=== PATIENT | female | born 1965 | race Caucasian/White ===

== ENCOUNTER 2017-03-02 10:42 | Emergency (ER) | payer OTHER ==
[~2017-03-02] VITALS: Ht 165.1 cm; Wt 100.0 kg
[~2017-03-02 10:42] MED LIST: LORTA5 PO; POLY10O LEFT EYE; Z.0.NO CURRENT MEDS
[2017-03-02 10:44] VITALS: BP 150/71; PULSE 90; RESP 15; TEMP 98.2; O2SAT 99
[2017-03-02] MEDS ORDERED: SODIUM CHLOR 0.9% 1000 ML INJ 1,000 ML IV SCH (11:53)
[2017-03-02] MEDS ORDERED: MORPHINE SULFATE 4 MG/ML INJ IV PUSH ONE (12:00)
[2017-03-02] MEDS ORDERED: ONDANSETRON HCL 4 MG/2 ML VIAL IVP ONE (12:00)
[2017-03-02] MEDS ORDERED: SODIUM CHLORIDE 0.9% FLUSH 10 ML FLUSH IV FLUSH PRN (12:00)
--- NOTE | 2017-03-02 12:02 | PD ---
HPI Chief Complaint: Back/ Neck Pain or Injury Time Seen by Provider: 11:56 Travel History International Travel<30 days: No Contact w/Intl Traveler<30days: No Traveled to known affect area: No History of Present Illness HPI 52-year-old female presents to the emergency department for evaluation of left low back pain. Patient states that on Tuesday, she felt a pull in her left lower back. She assumed that she had a muscle strain. She went to urgent care and received a Toradol injection. She has received prescriptions for diclofenac and Flexeril. She states she is taking his without improvement. Patient reports history diverticulitis and irritable bowel syndrome. She states that she started vomiting today. The pain worsens in her back and now radiates to her abdomen with vomiting. Patient denies any fevers or chills. She states that her stool is green. She states she has been unable to eat. Patient denies . She denies chest pain or shortness of breath. Patient denies any loss of bowel or bladder control. No saddle anesthesias. Patient denies any weakness. Back pain is worse with movement. 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 She states that she saw her vascular surgeon last month and states that everything was fine with this. She denies any other abdominal surgeries. [facility] Social History Alcohol Use: Yes (occasionally) Tobacco Use: No Substance Use: No Allergies-Medications (Allergen,Severity, Reaction): Coded Allergies: Penicillin (Verified Allergy, Severe, Anaphylaxis, 03/02/17) Codeine (Verified Allergy, Intermediate, VOMITING/SWELLING, 03/02/17) Reported Meds & Prescriptions Reported Meds & Active Scripts Active Reported Dicyclomine (Dicyclomine HCl) 20 Mg Tab 20 Mg PO TID Review of Systems Except as stated in HPI: all other systems reviewed are Neg Physical Exam Narrative GENERAL: Well-nourished, well-developed female patient, ambulatory. Afebrile. SKIN: Focused skin assessment warm/dry. HEAD: Normocephalic. Atraumatic. EYES: No scleral icterus. No injection or drainage. NECK: Supple, trachea midline. No JVD or lymphadenopathy. CARDIOVASCULAR: Regular rate and rhythm without murmurs, gallops, or rubs. RESPIRATORY: Breath sounds equal bilaterally. No accessory muscle use. Lungs sounds are clear to auscultation. GASTROINTESTINAL: Abdomen soft and nondistended. Patient has tenderness over the epigastric region, left upper quadrant, left lower quadrant. MUSCULOSKELETAL: No cyanosis, or edema. Bilateral upper and lower extremity strength 5/5. All extremities are neurovascularly intact. BACK: No obvious deformity. No CVA tenderness. No midline spinal tenderness. Patient has tenderness over left lumbar paraspinal musculature. She is ambulatory, but with pain. Data Data Last Documented VS Vital Signs Date Time Temp Pulse Resp B/P Pulse Ox O2 Delivery O2 Flow Rate FiO2 03/02/17 14:04 18 03/02/17 13:30 70 147/82 98 Room Air 03/02/17 10:44 98.2 Orders Morphine Inj (Morphine Inj) (03/02/17 12:00) Complete Blood Count With Diff (03/02/17 11:53) Comprehensive Metabolic Panel (03/02/17 11:53) Lipase (03/02/17 11:53) Urinalysis - C+S If Indicated (03/02/17 11:53) Ct Abd/Pel W Iv Contrast(Rout) (03/02/17 11:53) Iv Access Insert/Monitor (03/02/17 11:53) Ecg Monitoring (03/02/17 11:53) Oximetry (03/02/17 11:53) Ondansetron Inj (Zofran Inj) (03/02/17 12:00) Sodium Chlor 0.9% 1000 Ml Inj (Ns 1000 M (03/02/17 11:53) Sodium Chloride 0.9% Flush (Ns Flush) (03/02/17 12:00) Electrocardiogram (03/02/17 11:53) Ed Urine Pregnancytest Poc (03/02/17 11:53) Ct Lumb Spine W/O Contrast (03/02/17 ) Urine Culture (03/02/17 12:00) Iohexol 350 Inj (Omnipaque 350 Inj) (03/02/17 14:14) Ketorolac Inj (Toradol Inj) (03/02/17 15:00) Labs Laboratory Tests Test 03/02/17 03/02/17 12:00 12:50 White Blood Count 12.7 TH/MM3 Red Blood Count 4.15 MIL/MM3 Hemoglobin 12.3 GM/DL Hematocrit 37.1 % Mean Corpuscular Volume 89.2 FL Mean Corpuscular Hemoglobin 29.6 PG Mean Corpuscular Hemoglobin 33.2 % Concent Red Cell Distribution Width 13.6 % Platelet Count 319 TH/MM3 Mean Platelet Volume 8.7 FL Neutrophils (%) (Auto) 72.1 % Lymphocytes (%) (Auto) 16.3 % Monocytes (%) (Auto) 7.9 % Eosinophils (%) (Auto) 2.7 % Basophils (%) (Auto) 1.0 % Neutrophils # (Auto) 9.2 TH/MM3 Lymphocytes # (Auto) 2.1 TH/MM3 Monocytes # (Auto) 1.0 TH/MM3 Eosinophils # (Auto) 0.3 TH/MM3 Basophils # (Auto) 0.1 TH/MM3 CBC Comment AUTO DIFF Differential Comment AUTO DIFF CONFIRMED Urine Color YELLOW Urine Turbidity HAZY Urine pH 5.5 Urine Specific Tas[place] 1.011 Urine Protein NEG mg/dL Urine Glucose (UA) NEG mg/dL Urine Ketones NEG mg/dL Urine Occult Blood NEG Urine Nitrite NEG Urine Bilirubin NEG Urine Urobilinogen LESS THAN 2.0 MG/DL Urine Leukocyte Esterase NEG Urine WBC 1 /hpf Urine Squamous Epithelial 9 /hpf Cells Urine Bacteria MANY /hpf Urine Mucus FEW /lpf Microscopic Urinalysis Comment CULTURE INDICATED Sodium Level 138 MEQ/L Potassium Level 4.0 MEQ/L Chloride Level 106 MEQ/L Carbon Dioxide Level 25.2 MEQ/L Anion Gap 7 MEQ/L Blood Urea Nitrogen 16 MG/DL Creatinine 0.91 MG/DL Estimat Glomerular Filtration 65 ML/MIN Rate Random Glucose 88 MG/DL Calcium Level 8.9 MG/DL Total Bilirubin 0.4 MG/DL Aspartate Amino Transf 15 U/L (AST/SGOT) Alanine Aminotransferase 18 U/L (ALT/SGPT) Alkaline Phosphatase 64 U/L Total Protein 7.0 GM/DL Albumin 3.4 GM/DL Lipase 133 U/L [facility] Medical Decision Making Medical Screen Exam Complete: Yes Emergency Medical Condition: Yes Medical Record Reviewed: Yes Interpretation(s) CT abdomen/pelvis - CONCLUSION: 1. No acute abnormality is seen. 2. Mild hepatic steatosis. 3. Tiny 2 mm nonobstructing left renal stone. CT lumbar spine -CONCLUSION: 1. Mild disc bulges at the L3-L4 and L4-L5 levels. 2. Lower lumbar facet hypertrophy at the L5-S1 level. 3. Several sclerotic areas in the upper sacrum. These are nonspecific. Bone islands can have this appearance but other causes for sclerotic lesions cannot be excluded. Differential Diagnosis Diverticulitis versus pancreatitis versus bowel obstruction versus muscle strain versus muscle spasm versus herniated disc Narrative Course 52-year-old female presents to the emergency department for evaluation of low back pain, left abdominal pain, vomiting. EKG, CBC, CMP, lipase, UA and UPT are ordered and pending. CT abdomen/pelvis with IV contrast and CT of the lumbar spine without contrast are ordered and pending. Patient is given morphine 4 mg IV, Zofran 4 mg IV, normal saline 1 L IV bolus. EKG shows SR, HR 72, no acute ST changes. CBC shows leukocytosis 12.7. CMP shows no acute abnormal. Lipase is 133. UA shows many bacteria. UPT is negative. CT of the lumbar spine shows mild disc bulges at the L3-L4 and L4-L5 levels; lower lumbar facet hypertrophy at the L5-S1 level; several sclerotic areas in the upper sacrum. These are nonspecific. Bone islands can have this appearance but other causes for sclerotic lesions cannot be excluded. CT of the abdomen/pelvis shows no acute abnormality is seen; mild hepatic steatosis; Tiny 2 mm nonobstructing left renal stone. Patient will be discharged with a short term prescription for Lortab for pain. She will be discharged with a prescription for Macrobid for UTI. I discussed the case with my attending physician, Dr. Smith, who agrees on plan and disposition. The patient was discharged in stable condition with instructions, including return instructions and follow up instructions. Diagnosis Primary Impression: Lumbar strain Qualified Code: S39.012A - Lumbar strain, initial encounter Additional Impression: Abdominal pain Qualified Code: R10.9 - Abdominal pain, unspecified location Referrals: Primary Care Physician call for appointment Patient Instructions: Abdominal Pain (ED), Acute Low Back Pain (ED), General Instructions Departure Forms: Tests/Procedures, Work Release Enter return to work date: Mar 05, 2017 Additional Instructions: Continue diclofenac as needed for mild-moderate pain. Take Lortab as directed as needed for moderate-severe pain. Caution this can make you drowsy so do not drive after taking. Continue Flexeril as needed. Take Zofran as directed as needed for nausea. Take Macrobid as directed until gone for UTI. Follow-up with your primary care physician. Return to the emergency department for any acute worsening of symptoms. Med/Other Pt SpecificInfo: Prescription(s) given Scripts Nitrofurantoin Monohydrate Macrocrystals (Macrobid)100 Mg Xof640 Mg PO BID 7 Days Ref 0 Prov:Aleah Pete 03/02/17 Ondansetron Odt 4 Mg Tab4 Mg SL Q6HR PRN (Nausea/Vomiting) #16 TAB Ref 0 Prov:Aleah Pete 03/02/17 Hydrocodone-Acetaminophen (Lortab)5-325 Mg Tab1 Tab PO Q6H PRN (PAIN) #16 TAB Ref 0 Prov:Niels Smith MD 03/02/17 Disposition: 01 DISCHARGE HOME Condition: Stable Aleah Pete Mar 02, 2017 12:01
[2017-03-02 12:14] VITALS: O2SAT 97
[2017-03-02 12:26] LABS: AUTOMATED NEUTROPHIL # 9.2 TH/MM3 (1.8-7.7); BASOPHIL # 0.1 TH/MM3 (0-0.2); EOSINOPHIL # 0.3 TH/MM3 (0-0.4); EOSINOPHIL % 2.7 % (0.0-4.0); HEMATOCRIT 37.1 % (35.0-46.0); LYMPH % 16.3 % (9.0-44.0); LYMPHOCYTE # 2.1 TH/MM3 (1.0-4.8); MEAN CELL VOLUME 89.2 FL (80.0-100.0); MEAN CORPUSCULAR HEMOGLOBIN 29.6 PG (27.0-34.0); MEAN CORPUSCULAR HGB CONC 33.2 % (32.0-36.0); MONO % 7.9 % (0.0-8.0); NEUT % 72.1 % (16.0-70.0); PLATELET COUNT 319 TH/MM3 (150-450); RED BLOOD COUNT 4.15 MIL/MM3 (4.00-5.30); RED CELL DISTRIBUTION WIDTH 13.6 % (11.6-17.2); WHITE BLOOD COUNT 12.7 TH/MM3 (4.0-11.0)
[2017-03-02 12:27] LABS: HEMO FLAGS AUTO DIFF
[2017-03-02] MEDS ORDERED: DICY20TA10 PO (12:29)
[2017-03-02 12:32] LABS: BACTERIA, URINE MANY /hpf; BLOOD, URINE NEG (NEG); COMMENT (UR) CULTURE INDICATED; CULTURE IF INDICATED CULTURE INDICATED; GLUCOSE,URINE NEG (NEG); KETONE, URINE NEG (NEG); MUCUS URINE FEW /lpf (OCC); NITRITE,URINE NEG (NEG); PH, URINE 5.5 (5.0-8.5); SQUAMOUS EPITHELIAL CELL URINE 9 /hpf (0-5); URINE COLOR YELLOW (YELLW/STRAW)
[2017-03-02 13:05] LABS: SCAN/DIFF AUTO DIFF CONFIRMED
[2017-03-02 13:23] LABS: ALT (GPT) 18 U/L (10-53); ANION GAP 7 MEQ/L (5-15); AST (GOT) 15 U/L (15-37); BICARBONATE 25.2 MEQ/L (21.0-32.0); BLOOD UREA NITROGEN 16 MG/DL (7-18); CHLORIDE 106 MEQ/L (98-107); GLOMERULAR FILTRATION RATE 65 ML/MIN (>89); SODIUM (NA) 138 MEQ/L (136-145)
[2017-03-02 13:25] LABS: ALKALINE PHOSPHATASE 64 U/L (45-117); TOTAL BILIRUBIN ADULT 0.4 MG/DL (0.2-1.0)
[2017-03-02 13:30] VITALS: BP 147/82; PULSE 70; RESP 19; O2SAT 98
[2017-03-02 14:04] VITALS: RESP 18
[2017-03-02] MEDS ORDERED: IOHEXOL 350 MG/ML 10 ML VIAL (for RAD DIAG) IV ONE (14:14)
--- NOTE | 2017-03-02 14:54 | RADRPT ---
EXAM DATE/TIME: 03/02/2017 14:19 [facility] COMPARISON: No previous studies available for comparison. INDICATIONS : Left back and abdominal pain. Vomiting IV CONTRAST: 92 cc Omnipaque 350 (iohexol) IV ORAL CONTRAST: No oral contrast ingested. RADIATION DOSE: 16.67 CTDIvol (mGy) MEDICAL HISTORY : Irritable bowel syndrome, Diverticulitis SURGICAL HISTORY : celiac artery surgery ENCOUNTER: Initial ACUITY: 4 - 6 days PAIN SCALE: 6/10 LOCATION: Left middle abdomen TECHNIQUE: Volumetric scanning of the abdomen and pelvis was performed. Using automated exposure control and adjustment of the mA and/or kV according to patient size, radiation dose was kept as low as reasonably achievable to obtain optimal diagnostic quality images. FINDINGS: There is mild decreased attenuation seen throughout the liver. No focal hepatic lesion s are seen. Clips are seen in the celiac region. Gallbladder is unremarkable for a CT examination. The spleen, pancreas, and adrenal glands are unremarkable. Both kidneys demonstrate normal enhancem ent. There is a small 2 mm nonobstructing left renal stone seen at the superior left collecting syst em. There is a circumaortic left renal vein. This is a normal variant. There are some scattered co lonic diverticula in the descending colon and sigmoid regions. Significant inflammatory change is not seen. The bowel appears otherwise unremarkable. What appears to possibly be the appendix is identi fied and appears normal. The pelvic structures are grossly intact. The lung bases are clear. There is some degenerative change in the lower lumbar spine. There is hypertrophic change seen around the r ight ischial tuberosity likely from prior hamstring injury. CONCLUSION: 1. No acute abnormality is seen. 2. Mild hepatic steatosis. 3. Tiny 2 mm nonobstructing left renal stone. Abner Villatoro MD on March 02, 2017 at 14:39 Board Certified Radiologist. This report was verified electronically.
[2017-03-02] MEDS ORDERED: KETOROLAC TROMETHAMINE 30 MG/ML (IVP) VIAL IV PUSH ONE (15:00)
--- NOTE | 2017-03-02 15:28 | RADRPT ---
EXAM DATE/TIME: 03/02/2017 14:19 [facility] COMPARISON: No previous studies available for comparison. INDICATIONS : Left back pain status post injury on Tuesday. RADIATION DOSE: CTDIvol (mGy) ; Reconstructed from previous dataset MEDICAL HISTORY : Irritable bowel syndrom, diverticulitis, SURGICAL HISTORY : celiac artery surgery ENCOUNTER: Initial ACUITY: 4 - 6 days PAIN SCALE: 6/10 LOCATION: Left lateral lumbar TECHNIQUE: Volumetric scanning of the lumbar spine was performed. Multiplanar reconstructions in the sagittal, coronal and oblique axial planes were performed. Using automated exposure control and adjustment of the mA and/or kV according to patient size, radiation dose was kept as low as reasonably achievable t o obtain optimal diagnostic quality images. FINDINGS: VERTEBRAE: Normal vertebral body height. There are several sclerotic foci seen in the upper sacrum. These are no nspecific. They may represent bone islands. At least 3 lesions are seen with the largest one measurin g 0.9 cm. ALIGNMENT: No evidence of subluxation. OTHER: Clips are seen in the celiac region. T12-L1: The thecal sac has a normal diameter. No evidence of disc bulge or protrusion. The neural foramina are patent bilaterally. L1-L2: The thecal sac has a normal diameter. No evidence of disc bulge or protrusion. The neural foramina are patent bilaterally. L2-L3: The thecal sac has a normal diameter. No evidence of disc bulge or protrusion. The neural foramina are patent bilaterally. L3-L4: There is mild diffuse disc bulge. This causes a mild impress on the thecal sac. No evidence of disc b ulge or protrusion. The neural foramina are patent bilaterally. L4-L5: There is mild diffuse disc bulge. This causes a mild impress on the thecal sac. No evidence of disc b ulge or protrusion. The neural foramina are patent bilaterally. L5-S1: The thecal sac has a normal diameter. No evidence of disc bulge or protrusion. The neural foramina are patent bilaterally. There is mild facet hypertrophy. CONCLUSION: 1. Mild disc bulges at the L3-L4 and L4-L5 levels. 2. Lower lumbar facet hypertrophy at the L5-S1 level. 3. Several sclerotic areas in the upper sacrum. These are nonspecific. Bone islands can have this nasima earance but other causes for sclerotic lesions cannot be excluded. Abner Villatoro MD on March 02, 2017 at 15:19 Board Certified Radiologist. This report was verified electronically.
[2017-03-02] MEDS ORDERED: HYDR-3533 PO (15:37)
[2017-03-02] MEDS ORDERED: ONDA4TAB7 SL (15:40)
[2017-03-02] MEDS ORDERED: MACR100C2 PO (15:40)
[2017-03-02 15:55] VITALS: BP 140/72
--- NOTE | 2017-03-03 13:44 | EKG ---
Date Performed: 03/02/2017 Time Performed: 12:27:26 PTAGE: 52 years EKG: Sinus rhythm NORMAL ECG INTERPRETATION BASED ON A DEFAULT AGE OF 42 YEARS NO PREVIOUS TRACING DOCTOR: Farrah Drake Interpretating Date/Time 03/03/2017 13:42:25
== END 2017-03-02 15:56 | disposition home or self-care (01) ==
LOC: NEPD 10:42
DX: S39.012A Strain of muscle, fascia and tendon of lower back, initial encounter (principal); R10.9 Unspecified abdominal pain; R11.10 Vomiting, unspecified; N20.0 Calculus of kidney; K76.0 Fatty (change of) liver, not elsewhere classified; X58.XXXA Exposure to other specified factors, initial encounter; Z79.899 Other long term (current) drug therapy; Z88.0 Allergy status to penicillin; Z88.5 Allergy status to narcotic agent
CPT/HCPCS: 72131; 74177; 80053; 81001; 83690; 84703; 85025; 87086; 93005; 96361; 96374; 96375; 99285; J1885; J2270; J2405; J7030; Q9967

== ENCOUNTER → 2017-07-13 | Outpatient (CLI) | payer OTHER ==
[~2017-07-13] MED LIST changes: +DICY20TA10 PO; +HYDR-3533 PO; -LORTA5 PO; +MACR100C2 PO; +ONDA4TAB7 SL; -POLY10O LEFT EYE; -Z.0.NO CURRENT MEDS
[2017-07-13 11:52] LABS: HEMATOCRIT 39.3 % (35.0-46.0); MEAN CELL VOLUME 90.6 FL (80.0-100.0); MEAN CORPUSCULAR HGB CONC 34.2 % (32.0-36.0); PLATELET COUNT 336 TH/MM3 (150-450); RED BLOOD COUNT 4.33 MIL/MM3 (4.00-5.30); RED CELL DISTRIBUTION WIDTH 12.9 % (11.6-17.2); REVIEW FLAG FINAL; WHITE BLOOD COUNT 10.6 TH/MM3 (4.0-11.0)
== END ==
LOC: CPRE 09:51
PROVIDERS: ATTEND Obstetrics & Gynecology
DX: Z01.812 Encounter for preprocedural laboratory examination (principal); N92.0 Excessive and frequent menstruation with regular cycle
CPT/HCPCS: 36415; 84703; 85027

== ENCOUNTER 2017-07-18 05:52 | Observation (INO) | payer OTHER ==
[~2017-07-18] VITALS: Ht 165.1 cm; Wt 99.5 kg
[2017-07-18] MEDS ORDERED: CHLORHEXIDINE GLUCONATE 2 % 1 PACK (2 CLOTHS) TOPICAL PRN (06:30)
[2017-07-18] MEDS ORDERED: POVIDONE IODINE 5% (ANTISEPSIS KIT) 4 APPLICATIONS EACH NARE PRN (06:30)
[2017-07-18] MEDS ORDERED: ONDANSETRON HCL 4 MG/2 ML VIAL IV PUSH SCH (06:30)
[2017-07-18] MEDS ORDERED: SODIUM CHLORID 0.9% 500 ML IV PRN (06:30)
[2017-07-18] MEDS ORDERED: LACTATED RINGER'S 1000 ML IV PRN (06:30)
[2017-07-18] MEDS ORDERED: INSULIN HUMAN REGULAR 1,000 UNITS/10 ML VIAL SQ PRN (06:30)
[2017-07-18] MEDS ORDERED: METOPROLOL TARTRATE 25 MG TAB PO PRN (06:30)
[2017-07-18] MEDS ORDERED: MIDAZOLAM HCL 2 MG/2 ML VIAL IV SCH (07:00)
[2017-07-18] MEDS ORDERED: CLINDAMYCIN PHOS 600 MG/4 ML VIAL ONE (07:21)
[2017-07-18] MEDS ORDERED: VASOPRESSIN 20 UNITS/ML VIAL (IVTITR) ONE (07:26)
[2017-07-18] MEDS ORDERED: ACETAMINOPHEN 1000 MG/100 ML 100 ML IV ONE (07:33)
[2017-07-18] MEDS ORDERED: FAMOTIDINE 20 MG/2 ML VIAL ONE (07:39)
[2017-07-18] MEDS ORDERED: APREPITANT 40 MG CAP ONE (07:39)
[2017-07-18] MEDS ORDERED: GENTAMICIN INJ 100 MG in SODIUM CHLORIDE 0.9% INJ 100 ML IV SCH (07:45)
[2017-07-18] MEDS ORDERED: CLINDAMYCIN 600 MG/NS 100 ML IV SCH ×2 (07:45)
[2017-07-18] MEDS ORDERED: DO NOT ADM ANY ANTICOAGULANT DRUGS PRN (09:27)
[2017-07-18] MEDS ORDERED: *morphine SULFATE 8 MG/ML PERIprocedure ONLY ONE ×3 (09:46→10:15)
[2017-07-18] MEDS ORDERED: MORPHINE SULFATE 30 MG/30 ML PCA ONE (09:47)
[2017-07-18] MEDS: DEXT 5%-NACL 0.45% 1000 ML INJ 1,000 ML IV SCH ×2 (10:00→22:54)
[2017-07-18] MEDS ORDERED: IBUPROFEN 800 MG TAB PO PRN (10:15)
[2017-07-18] MEDS ORDERED: MORPHINE SULFATE 30 MG/30 ML PCA IV SCH (10:15)
[2017-07-18] MEDS ORDERED: ONDANSETRON HCL 4 MG/2 ML VIAL IV PUSH PRN (10:15)
[2017-07-18] MEDS ORDERED: diphenhydrAMINE HCL 50 MG/ML VIAL IV PUSH PRN (10:15)
[2017-07-18] MEDS ORDERED: NALOXONE HCL 0.4 MG/ML AMP IV PUSH PRN (10:15)
[2017-07-18 12:11] VITALS: BP 121/66; PULSE 79; RESP 16; TEMP 97.5; O2SAT 97
[2017-07-18] MEDS ORDERED: PCA - TOTAL MG MORPHINE DELIVERED PER SHIFT SCH (14:00)
[2017-07-18 16:24] VITALS: BP 140/77; PULSE 67; RESP 16; TEMP 97.7
--- NOTE | 2017-07-18 19:37 | MP ---
cc: DEANGELO JON DATE OF SURGERY: 07/18/2017 PREOPERATIVE DIAGNOSIS: Menorrhagia, dysmenorrhea, status post endometrial ablation. POSTOPERATIVE DIAGNOSIS Menorrhagia, dysmenorrhea, status post endometrial ablation. PROCEDURE: Laparoscopic-assisted supracervical hysterectomy. SURGEON Helen Jon MD. ANESTHESIA: General. ESTIMATED BLOOD LOSS: 100 cc. COMPLICATIONS: None. FINDINGS: The patient had a uterus that was grossly normal in size, shape and position. There were extensive adhesions from her prior section from a lower uterine segment up onto the left round ligament. The fallopian tubes were unremarkable. The right tube and ovary were slightly scarred to the sigmoid colon. There were omental adhesions scaring the view of the upper abdomen. The lower abdominal structures were otherwise grossly normal. DESCRIPTION OF PROCEDURE: The patient was taken to the operating room and following general anesthesia, was placed in dorsolithotomy position. Her vagina, abdomen and perineum were prepped and draped. A Fortino cannula was placed into the uterus and a Zambrano catheter into the bladder. A 1 cm subumbilical skin incision was made. Veress needle was inserted and three liters of CO2 was infused into the abdomen. Veress needle was then removed. The laparoscope was placed without difficulty. A second and third puncture site were created under direct visualization. The findings were as noted above. The harmonic scalpel was used to clamp, cut and seal the upper broad ligaments and the round ligaments. The adhesions from the tubes and ovaries were taken down sharply. The bladder peritoneum was incised and the adhesions in the anterior cul-de-sac were taken down sharply. The uterine vessels were skeletonized and then clamped, cut and sealed with the harmonic scalpel. The cervix was then transected across the upper portion with the harmonic scalpel. The stump of the cervix was cauterized for hemostasis. The uterus was then morcellated and removed. The fallopian tubes were then removed by sealing the mesosalpinx with the harmonic scalpel. The tubes were removed intact and sent with the uterus to pathology. The pelvis was copiously irrigated and excellent hemostasis was noted at all sites. Photos of all areas were taken. The instruments removed and the CO2 gas was allowed to escape. Incisions were then closed with subcuticular #4-0 Vicryl stitch. The patient taken to the Recovery Room in good condition with all counts correct and clear urine draining in her Zambrano catheter. MD QUITA Boswell/ELIAS /9:27 AM /7:33 PM
[2017-07-18 20:00] VITALS: BP 114/68; PULSE 64; RESP 14; TEMP 97.8; O2SAT 100
[2017-07-18] MEDS ORDERED: PROMETHAZINE INJ 25 MG/ML VIAL IM PRN (22:45)
[2017-07-19 01:00] VITALS: BP 127/77; PULSE 67; RESP 16; TEMP 98; O2SAT 100
[2017-07-19 05:00] VITALS: BP 110/72; PULSE 76; RESP 16; TEMP 97.9; O2SAT 100
[2017-07-19 07:30] VITALS: PULSE 128; RESP 18; TEMP 98.6; O2SAT 96
[2017-07-19 09:39] LABS: HEMATOCRIT 35.8 % (35.0-46.0); REVIEW FLAG FINAL
[2017-07-19] MEDS ORDERED: PNEUMOCOCCAL POLYVALENT INJ 25 MCG/0.5 ML SYR IM ONE (10:00)
[2017-07-19] MEDS ORDERED: oxyCODONE/ACETAMINOPHEN 5 MG/325 MG TAB PO ONE (12:00)
== END 2017-07-19 12:08 | disposition home or self-care (01) ==
LOC: HSDC 05:52 → H1EA 11:52 → HSDC 12:09 → H1EA 12:10
PROVIDERS: ADMIT Obstetrics & Gynecology; ATTEND Obstetrics & Gynecology
DX: N92.0 Excessive and frequent menstruation with regular cycle (principal); N94.6 Dysmenorrhea, unspecified; K66.0 Peritoneal adhesions (postprocedural) (postinfection); K58.9 Irritable bowel syndrome, unspecified
CPT/HCPCS: 00840; 58542; 85014; 85018; 86850; 86900; 86901; 88307; 96374; 96375; G0378; J0131; J1580; J2270; J2405; J2550; J7120; J8501